=== PATIENT | female | born 1945 | race African-American/Black ===

== ENCOUNTER 2017-05-26 18:26 | Emergency (ER) | payer OTHER ==
[~2017-05-26] VITALS: Ht 160 cm; Wt 126.7 kg
[2017-05-26 19:28] LABS: EOSINOPHIL (%) 4.4 % (0-5); EOSINOPHIL COUNT 0.3 K/uL (0-0.3); HEMATOCRIT 33.7 % (36.0-46.0); IMMATURE GRANULOCYTE (%) 0.4 % (0.0-0.7); LYMPHOCYTE COUNT 1.8 K/uL (1.0-2.8); MCH 23.3 PG (29.0-34.0); MCV 77.8 FL (83-99); MEAN PLAT.VOLUME 9.7 uM^3 (9.5-12.4); MONOCYTE (%) 6.6 % (3-12); MONOCYTE COUNT 0.5 K/uL (0-0.8); NEUTROPHIL (%) 64.9 % (45-76); PLATELET COUNT 298 K/uL (156-360); RBC DIS.WIDTH-CV 17.6 % (11.8-14.6); RBC DIS.WIDTH-SD 49.5 % (39-53); RED BLOOD COUNT 4.33 M/uL (3.80-5.20); WHITE BLOOD COUNT 7.7 K/uL (4.1-10.2)
[2017-05-26 19:34] LABS: INTER. NORMALIZED RATIO 1.9; PROTHROMBIN TIME 21.7 SEC (10.2-12.9)
[2017-05-26 19:37] LABS: CHLORIDE 102 mEq/L (99-109); POTASSIUM 4.5 mEq/L (3.7-5.4); PTT 39.6 SEC (25-37); SODIUM 137 mEq/L (136-147)
[2017-05-26 19:40] LABS: GLUCOSE 156 mg/dL (70-99)
[2017-05-26 19:41] LABS: ANION GAP 7 MEQ/L (2-14)
[2017-05-26 19:42] LABS: TOTAL BILIRUBIN 0.5 mg/dL (0.0-1.0)
[2017-05-26 19:43] LABS: ALKALINE PHOSPHATASE 153 IU/L (3-129)
[2017-05-26 19:45] LABS: DIRECT BILIRUBIN 0.2 mg/dL (0.0-0.3); UREA NITROGEN (BUN) 25 mg/dL (9-23)
[2017-05-26 19:46] LABS: GFR ESTIMATE (CALCULATED) 58 mL/min/
[2017-05-26 19:47] LABS: LIPASE 24 U/L (1.0-51.0)
[2017-05-26 19:50] LABS: TROP-I INTERPRETATION NEGATIVE; TROPONIN-I < 0.01 ng/mL (0.0-0.30)
[2017-05-26 21:56] LABS: ADD MIUA? NO; BILIRUBIN NEGATIVE; BLOOD NEGATIVE; COLOR YELLOW ((YELLOW)); GLUCOSE (STRIP) NEGATIVE; KETONES NEGATIVE; LEUKOCYTES NEGATIVE; NITRITE NEGATIVE; PROTEIN (STRIP) NEGATIVE; SPECIFIC GRAVITY 1.012 (1.000-1.030); UCUL ADDED? NO; UROBILINOGEN 0.2 MG/DL (0.2-1.0)
[2017-05-26 22:52] LABS: POINT-OF-CARE METER ID UU14100415
[2017-05-26] MEDS ORDERED: ALBUTEROL2.5 MG/3 M IH (23:14)
[2017-05-26] MEDS ORDERED: MAGNESIUM CITR296 M1 PO (23:14)
[2017-05-26 23:39] VITALS: BP 152/67
== END 2017-05-26 23:52 | disposition home or self-care (01) ==
LOC: EME 18:26
PROVIDERS: Emergency Medicine
DX: R74.0 Nonspecific elevation of levels of transaminase and lactic acid dehydrogenase [LDH] (principal); K59.00 Constipation, unspecified; J90 Pleural effusion, not elsewhere classified; K21.9 Gastro-esophageal reflux disease without esophagitis; E11.9 Type 2 diabetes mellitus without complications; J45.909 Unspecified asthma, uncomplicated; Z79.01 Long term (current) use of anticoagulants; Z96.651 Presence of right artificial knee joint; Z90.49 Acquired absence of other specified parts of digestive tract
CPT/HCPCS: 71010; 74176; 80048; 80076; 81003; 82948; 83690; 83880; 84484; 85025; 85610; 85730; 93005; 99281; 99285; J2405; J7120

== ENCOUNTER 2017-08-02 16:22 | Emergency (ER) | payer OTHER ==
[~2017-08-02] VITALS: Ht 160 cm; Wt 115.1 kg
[~2017-08-02 16:22] MED LIST: ALBUTEROL2.5 MG/3 M IH; MAGNESIUM CITR296 M1 PO
[2017-08-02 18:21] LABS: BASOPHIL COUNT 0.1 K/uL (0-0.1); EOSINOPHIL (%) 3.2 % (0-5); EOSINOPHIL COUNT 0.2 K/uL (0-0.3); HEMATOCRIT 35.8 % (36.0-46.0); IMMATURE GRANULOCYTE (%) 0.3 % (0.0-0.7); INSTRUMENT ABS NEUTROPHIL CT 4.7 K/uL; LYMPHOCYTE COUNT 1.8 K/uL (1.0-2.8); MCH 22.1 PG (29.0-34.0); MCHC 29.3 G/DL (30.0-36.0); MCV 75.4 FL (83-99); MEAN PLAT.VOLUME 9.5 uM^3 (9.5-12.4); MONOCYTE (%) 10.1 % (3-12); MONOCYTE COUNT 0.8 K/uL (0-0.8); NEUTROPHIL (%) 61.8 % (45-76); NEUTROPHIL COUNT 4.7 K/uL (1.8-6.4); PLATELET COUNT 302 K/uL (156-360); RBC DIS.WIDTH-CV 17.3 % (11.8-14.6); RBC DIS.WIDTH-SD 46.5 % (39-53); RED BLOOD COUNT 4.75 M/uL (3.80-5.20); WHITE BLOOD COUNT 7.6 K/uL (4.1-10.2)
[2017-08-02 18:33] LABS: CHLORIDE 100 mEq/L (99-109); SODIUM 139 mEq/L (136-147)
[2017-08-02 18:35] LABS: GLUCOSE 191 mg/dL (70-99)
[2017-08-02 18:36] LABS: ANION GAP 11 MEQ/L (2-14)
[2017-08-02 18:37] LABS: TOTAL BILIRUBIN 0.5 mg/dL (0.0-1.0)
[2017-08-02 18:38] LABS: ALKALINE PHOSPHATASE 184 IU/L (3-129)
[2017-08-02 18:39] LABS: GFR ESTIMATE (CALCULATED) > 59 mL/min/
[2017-08-02 18:40] LABS: UREA NITROGEN (BUN) 21 mg/dL (9-23)
[2017-08-02 19:08] LABS: SAMPLE HEMOLYSIS CHECK 0; SAMPLE ICTERIC CHECK 0; SAMPLE LIPEMIA CHECK 0
[2017-08-02 20:10] LABS: POINT-OF-CARE METER ID UU13113747
[2017-08-02 22:07] VITALS: BP 117/64
== END 2017-08-02 22:09 | disposition home or self-care (01) ==
LOC: EME 16:22
PROVIDERS: Emergency Medicine
DX: M62.838 Other muscle spasm (principal); R11.2 Nausea with vomiting, unspecified; I10 Essential (primary) hypertension; E78.5 Hyperlipidemia, unspecified; K21.9 Gastro-esophageal reflux disease without esophagitis; Z96.651 Presence of right artificial knee joint; Z91.040 Latex allergy status
CPT/HCPCS: 70450; 80053; 82010; 82948; 85025; 93005; 99281; 99284; J7030

== ENCOUNTER 2018-01-29 20:29 | Inpatient (IN) | payer OTHER ==
[~2018-01-29] VITALS: Ht 160 cm; Wt 114.8 kg
[2018-01-29 22:11] LABS: HEMATOCRIT 31.8 % (36.0-46.0); HEMOGLOBIN 9.8 G/DL (11.9-15.5); MCH 22.6 PG (29.0-34.0); MCHC 30.8 G/DL (30.0-36.0); MCV 73.4 FL (83-99); PLATELET COUNT 257 K/uL (156-360); RBC DIS.WIDTH-SD 49.8 % (39-53); RED BLOOD COUNT 4.33 M/uL (3.80-5.20)
[2018-01-29 22:16] LABS: CHLORIDE 100 mEq/L (99-109); POTASSIUM 3.8 mEq/L (3.7-5.4); SODIUM 139 mEq/L (136-147)
[2018-01-29 22:18] LABS: GLUCOSE 81 mg/dL (70-99)
[2018-01-29 22:21] LABS: TROP-I INTERPRETATION NEGATIVE; TROPONIN-I 0.01 ng/mL (0.0-0.30)
[2018-01-29 22:22] LABS: CREATININE 0.9 mg/dL (0.6-1.3); GFR ESTIMATE (CALCULATED) > 59 mL/min/
[2018-01-29 22:23] LABS: UREA NITROGEN (BUN) 17 mg/dL (9-23)
[2018-01-29 22:56] LABS: PLAT.SUFFICIENCY ADEQUATE
[2018-01-30 00:21] LABS: DIGOXIN 0.6 ng/mL (0.8-2.0)
[2018-01-30 01:20] LABS: APPEARANCE CLOUDY ((CLEAR)); BILIRUBIN NEGATIVE; BLOOD SMALL; COLOR YELLOW ((YELLOW)); GLUCOSE (STRIP) NEGATIVE; KETONES NEGATIVE; LEUKOCYTES LARGE; NITRITE POSITIVE; PROTEIN (STRIP) 100; SPECIFIC GRAVITY 1.015 (1.000-1.030)
[2018-01-30 01:41] LABS: RED BLOOD CELLS 0-5 /HPF (0-5)
[2018-01-30 01:42] LABS: EPITHELIAL CELLS RARE /HPF; MUCUS NONE SEEN /LPF; WHITE BLOOD CELLS TNTC /HPF (0-5)
[2018-01-30 01:43] LABS: BACTERIA 3+ /HPF
[2018-01-30] MEDS ORDERED: COZAAR50 MG PO (01:49)
[2018-01-30] MEDS ORDERED: PROTONIX40 MG PO (01:49)
[2018-01-30] MEDS ORDERED: LANTUS 10100 UNITS/ SC (01:50)
[2018-01-30] MEDS ORDERED: TOPROL XL100 MG PO (01:50)
[2018-01-30] MEDS ORDERED: ELIQUIS5 MG PO (01:50)
[2018-01-30] MEDS ORDERED: ATORVASTATIN CA20 MG PO (01:50)
[2018-01-30] MEDS ORDERED: FUROSEMIDE80 MG PO (01:50)
[2018-01-30] MEDS ORDERED: HUMALOG100 UNIT/1 SC (01:50)
[2018-01-30] MEDS ORDERED: CARTIA XT180 MG PO (01:51)
[2018-01-30] MEDS ORDERED: IRON325 M1 PO (01:51)
[2018-01-30] MEDS ORDERED: CYMBALTA30 MG PO (01:51)
[2018-01-30] MEDS ORDERED: LORAZEPAM0.5 MG PO (01:51)
[2018-01-30] MEDS ORDERED: FLOVENT DISKUS1 DISK IH (01:51)
[2018-01-30] MEDS ORDERED: COSOPT EYE DROP10 ML BOTH EYES (01:51)
[2018-01-30] MEDS ORDERED: SINGULAIR10 MG PO (01:51)
[2018-01-30] MEDS ORDERED: DIGOXIN125 MCG PO (01:51)
[2018-01-30 05:56] VITALS: BP 166/82
[2018-01-30 12:03] VITALS: BP 143/66
[2018-01-30 15:37] VITALS: BP 178/79
[2018-01-30 19:52] VITALS: BP 138/68
[2018-01-31 00:09] VITALS: BP 141/77
[2018-01-31 04:02] VITALS: BP 148/75
[2018-01-31 06:45] VITALS: BP 138/77
[2018-01-31 07:03] LABS: BASOPHIL (%) 0.7 % (0-1); BASOPHIL COUNT 0.1 K/uL (0-0.1); EOSINOPHIL (%) 0.7 % (0-5); EOSINOPHIL COUNT 0.1 K/uL (0-0.3); HEMATOCRIT 32.2 % (36.0-46.0); HEMOGLOBIN 9.8 G/DL (11.9-15.5); IMMATURE GRANULOCYTE (%) 0.4 % (0.0-0.7); LYMPHOCYTE (%) 14.7 % (15-42); LYMPHOCYTE COUNT 1.1 K/uL (1.0-2.8); MCH 22.6 PG (29.0-34.0); MCHC 30.4 G/DL (30.0-36.0); MCV 74.4 FL (83-99); MONOCYTE (%) 11.6 % (3-12); MONOCYTE COUNT 0.9 K/uL (0-0.8); NEUTROPHIL (%) 71.9 % (45-76); NEUTROPHIL COUNT 5.5 K/uL (1.8-6.4); PLATELET COUNT 263 K/uL (156-360); RBC DIS.WIDTH-CV 19.4 % (11.8-14.6); RBC DIS.WIDTH-SD 51.7 % (39-53); RED BLOOD COUNT 4.33 M/uL (3.80-5.20); WHITE BLOOD COUNT 7.7 K/uL (4.1-10.2)
[2018-01-31 07:26] LABS: CHLORIDE 101 MEQ/L (99-109); CREATININE 0.8 MG/DL (0.6-1.3); GFR ESTIMATE (CALCULATED) > 59 mL/min/; POTASSIUM 3.7 MEQ/L (3.7-5.4); SODIUM 138 MEQ/L (136-147); UREA NITROGEN (BUN) 15 mg/dL (9-23)
[2018-01-31 07:32] LABS: GLUCOSE 48 mg/dL (70-99)
[2018-01-31 10:28] LABS: BASE EXCESS 0.9 mEq/L (-3 to +3); BICARBONATE 25.2 mEq/L (22-26); CARBOXY HGB 1.6 % (0-5); METHEMOGLOBIN 0.9 % (0-1.5); PCO2 38 mm Hg (35-45); PO2 74 mm Hg (80-100); pH 7.43 (7.35-7.45)
[2018-01-31 10:29] LABS: COMMENTS - BLOOD GASES A+C+; DEVICE ROOM AIR; FI02 21 %; O2 FLOW 0 L/MIN; SITE RRAD; TOTAL RESP RATE 18 resp/min
[2018-01-31 15:30] VITALS: BP 137/75
[2018-01-31 20:00] VITALS: BP 147/68
[2018-02-01 00:26] VITALS: BP 136/62
[2018-02-01 06:57] LABS: CHLORIDE 99 MEQ/L (99-109); CREATININE 0.7 MG/DL (0.6-1.3); GFR ESTIMATE (CALCULATED) > 59 mL/min/; POTASSIUM 4.3 MEQ/L (3.7-5.4); SODIUM 135 MEQ/L (136-147); UREA NITROGEN (BUN) 17 mg/dL (9-23)
[2018-02-01 06:59] LABS: GLUCOSE 206 mg/dL (70-99)
[2018-02-01 07:03] LABS: HEMATOCRIT 30.4 % (36.0-46.0); HEMOGLOBIN 9.1 G/DL (11.9-15.5); MCH 22.2 PG (29.0-34.0); MCHC 29.9 G/DL (30.0-36.0); MCV 74.3 FL (83-99); PLATELET COUNT 224 K/uL (156-360); RBC DIS.WIDTH-CV 19.1 % (11.8-14.6); RBC DIS.WIDTH-SD 51.7 % (39-53); RED BLOOD COUNT 4.09 M/uL (3.80-5.20); WHITE BLOOD COUNT 6.6 K/uL (4.1-10.2)
[2018-02-01 12:05] VITALS: BP 146/63
[2018-02-01 16:32] VITALS: BP 137/67
[2018-02-02 00:14] VITALS: BP 137/65
[2018-02-02 07:42] VITALS: BP 145/69
[2018-02-02 16:42] VITALS: BP 161/75
[2018-02-03 00:10] VITALS: BP 159/70
[2018-02-03 08:14] VITALS: BP 144/67
[2018-02-03] MEDS ORDERED: CIPRO500 MG PO (10:58)
== END 2018-02-03 13:31 | disposition home health service (06) | DRG 871 ==
LOC: EME 20:29 → 2EAST 01-30 04:51 → EDOF 01-30 04:51 → ENRESERV 01-30 04:54 → 2EASTP 01-30 05:54 → ENRESERV 01-31 14:58 → 2EAST 01-31 15:08 → ENPENDDIS 02-03 → 2EAST 02-03 13:31
PROVIDERS: Internal Medicine; Physician Assistant
DX: A41.51 Sepsis due to Escherichia coli [E. coli] (principal); N39.0 Urinary tract infection, site not specified; G93.41 Metabolic encephalopathy; I11.0 Hypertensive heart disease with heart failure; I50.9 Heart failure, unspecified; G47.33 Obstructive sleep apnea (adult) (pediatric); D50.9 Iron deficiency anemia, unspecified; E11.649 Type 2 diabetes mellitus with hypoglycemia without coma; E11.65 Type 2 diabetes mellitus with hyperglycemia; I48.91 Unspecified atrial fibrillation; G89.29 Other chronic pain; M54.9 Dorsalgia, unspecified; K21.9 Gastro-esophageal reflux disease without esophagitis; E66.01 Morbid (severe) obesity due to excess calories; Z68.41 Body mass index [BMI] 40.0-44.9, adult; Z79.01 Long term (current) use of anticoagulants; Z79.4 Long term (current) use of insulin; Z96.651 Presence of right artificial knee joint
CPT/HCPCS: 36600; 70450; 71045; 71046; 80048; 80162; 81003; 82103 90; 82803; 82948; 83605; 84484; 85025; 85027; 87040; 87077; 87086; 87186; 87801; 93005; 94640; 94640 76; 94660; 99281; 99284; J0696; J1815; J1940; J7030